=== PATIENT | female | born 1970 | race Caucasian/White ===

== ENCOUNTER 2016-10-28 06:39 | Emergency (ER) | payer OTHER ==
[~2016-10-28] VITALS: Ht 157.5 cm; Wt 77.1 kg
[~2016-10-28 06:39] MED LIST: Z.0.NO CURRENT MEDS
[2016-10-28 06:46] VITALS: BP 150/85; PULSE 87; RESP 16; TEMP 98; O2SAT 99
[2016-10-28] MEDS ORDERED: DIPH25CA PO (06:59)
[2016-10-28] MEDS ORDERED: PRED-503 PO (06:59)
[2016-10-28] MEDS ORDERED: ZANT150T2 PO (06:59)
--- NOTE | 2016-10-28 06:59 | PD ---
HPI Chief Complaint: sore throat Time Seen by Provider: 06:48 Travel History International Travel<30 days: No Contact w/Intl Traveler<30days: No Traveled to known affect area: No History of Present Illness HPI The patient is a 46-year-old female who presents to the emergency department for pain in the posterior aspect of her throat. The patient has a history of allergic reactions with swelling in the posterior aspect of her throat, states the last time she ate an unusual food was on Saturday. The patient complains of swelling of the uvula with mild pain with swallowing. She denies any shortness of breath. She denies any fever, chills, sweats, nasal congestion, or recent strep exposure. The patient denies taking any Kristian inhibitors or current medications. She denies any rash or pruritus. Symptoms are mild, no known alleviating or exacerbating factors. 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 ) Cardiovascular Problems: No Chemotherapy: Yes (FOR MOLAR ) Diminished Hearing: No Endocrine: No Genitourinary: No Musculoskeletal: No Neurologic: No Psychiatric: No Reproductive: Yes (MOLAR WITH CHEMO, LEFT TUBAL ) Respiratory: Yes (SINUS PROBLEMS) Immunizations Current: No Radiation Therapy: No : 4 Para: 1 Miscarriage: 3 Ectopic : Yes Past Surgical History Abdominal Surgery: Yes Cardiac Surgery: No Ear Surgery: No Endocrine Surgery: No Eye Surgery: No Genitourinary Surgery: No Gynecologic Surgery: Yes Oral Surgery: No Thoracic Surgery: No Social History Alcohol Use: Yes (SOCIAL) Tobacco Use: No Substance Use: No Allergies-Medications (Allergen,Severity, Reaction): Coded Allergies: Amoxicillin (Verified Allergy, Severe, SWOLLEN THROAT, 10/20/11) Bactrim (Verified Allergy, Severe, LIPS AND THROAT SWELL, 10/20/11) Codeine (Verified Allergy, Severe, SWOLLEN THROAT, 10/20/11) Erythromycin (Verified Allergy, Severe, UNKNOWN, 10/20/11) Percocet (Verified Allergy, Severe, SWOLLEN THROAT, 10/20/11) Tylenol (Verified Allergy, Severe, SWELL, 10/20/11) Reported Meds & Prescriptions Reported Meds & Active Scripts Active Reported No Current Meds (Miscellaneous Medication) Misc Review of Systems General / Constitutional: No: Fever, Chills HENT: Positive: Sore Throat, Other (as noted in the history of present illness) , No: Congestion Cardiovascular: No: Chest Pain or Discomfort Respiratory: No: Shortness of Breath, Wheezing Gastrointestinal: No: Nausea, Vomiting Skin: No Rash, No Itching Physical Exam Narrative GENERAL: Awake, alert, very pleasant 46-year-old female who appears her stated age and is in no acute respiratory distress. SKIN: Focused skin assessment warm/dry. HEAD: Atraumatic. Normocephalic. EYES: Pupils equal and round. No scleral icterus. No injection or drainage. ENT: No nasal bleeding or discharge. Oropharynx reveals the uvula that is edematous, no erythema or exudate. NECK: Trachea midline. No JVD. No audible stridor. CARDIOVASCULAR: Regular rate and rhythm. No murmur appreciated. RESPIRATORY: No accessory muscle use. Clear to auscultation. Breath sounds equal bilaterally. No wheezes. MUSCULOSKELETAL: No obvious deformities. No clubbing. No cyanosis. No edema. NEUROLOGICAL: Awake and alert. No obvious cranial nerve deficits. Motor grossly within normal limits. Normal speech. PSYCHIATRIC: Appropriate mood and affect; insight and judgment normal. Data Data Last Documented VS Vital Signs Date Time Temp Pulse Resp B/P Pulse Ox O2 Delivery O2 Flow Rate FiO2 10/28/16 06:46 98.0 87 16 150/[address] [facility] Medical Decision Making Medical Screen Exam Complete: Yes Emergency Medical Condition: Yes Medical Record Reviewed: Yes Differential Diagnosis Differential diagnosis includes uvulitis, Quincke's disease, allergic reaction, pharyngitis, angioedema, anaphylaxis. Narrative Course The patient's physical examination is consistent with uvulitis, unsure if this is inflammatory or allergic mediated. No evidence of erythema or exudates to suggest viral/bacterial pharyngitis. The patient does have a history of similar symptoms in the past secondary to foodborne allergies. The patient was administered prednisone, Benadryl, and Zantac. She is advised to follow-up with her primary physician and return if symptoms worsen or progress. Diagnosis Primary Impression: Uvulitis Additional Instructions: Medications as directed. Follow up with her primary physician. Return if symptoms worsen or progress. Med/Other Pt SpecificInfo: Prescription(s) given Scripts Ranitidine (Zantac)150 Mg Tkt472 Mg PO BID 5 Days Ref 0 Prov:Idris Gabriel MD 10/28/16 Diphenhydramine 25 Mg Cap25 Mg PO Q4H PRN (ALLERGIES) #20 CAP Ref 0 Prov:Idris Gabriel MD 10/28/16 Prednisone (Deltasone)20 Mg Tab40 Mg PO DAILY 4 Days Ref 0 Prov:Idris Gabriel MD 10/28/16 Disposition: 01 DISCHARGE HOME Condition: Stable Idris Gabriel MD Oct 28, 2016 06:59
[2016-10-28] MEDS ORDERED: diphenhydrAMINE HCL 25 MG CAP PO ONE (07:00)
[2016-10-28] MEDS ORDERED: FAMOTIDINE 20 MG TAB PO ONE (07:00)
[2016-10-28] MEDS ORDERED: predniSONE 20 MG TAB PO ONE (07:00)
== END 2016-10-28 07:22 | disposition home or self-care (01) ==
LOC: PHED 06:39
DX: K12.2 Cellulitis and abscess of mouth (principal)
CPT/HCPCS: 99283; J7512

== ENCOUNTER 2017-04-24 21:18 | Emergency (ER) | payer OTHER ==
[~2017-04-24 21:18] MED LIST changes: +DIPH25CA PO; +PRED-503 PO; -Z.0.NO CURRENT MEDS; +ZANT150T2 PO
[2017-04-24 21:26] VITALS: BP 169/80; PULSE 94; RESP 20; TEMP 98.2; O2SAT 98
--- NOTE | 2017-04-24 22:38 | PD ---
HPI Chief Complaint: Musculoskeletal Complaint Time Seen by Provider: 22:35 Travel History International Travel<30 days: No Contact w/Intl Traveler<30days: No Traveled to known affect area: No History of Present Illness HPI The patient is a 46-year-old female that complains of right knee pain for about a week. She states she noted swelling in the knee and is painful to walk on it. She denies any trauma. She denies any fever. She denies any other joint swelling. She denies any skin rash. She states the pain is dull and a 9/10. Flexion of the knee causes pain. 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 ) Cardiovascular Problems: No Chemotherapy: Yes (FOR MOLAR (REMITION)) Diminished Hearing: No Endocrine: No Genitourinary: No Musculoskeletal: No Neurologic: No Psychiatric: No Reproductive: Yes (MOLAR WITH CHEMO, LEFT TUBAL ) Respiratory: Yes (SINUS PROBLEMS) Immunizations Current: No Radiation Therapy: No Tetanus Vaccination: Unknown Influenza Vaccination: No ?: Unknown LMP: 12 10 17 : 4 Para: 1 Miscarriage: 3 Ectopic : Yes Tubal Ligation: Yes Past Surgical History Abdominal Surgery: Yes Cardiac Surgery: No Ear Surgery: No Endocrine Surgery: No Eye Surgery: No Genitourinary Surgery: No Gynecologic Surgery: Yes Oral Surgery: No Thoracic Surgery: No Other Surgery: Yes (ADNOIDS) Social History Alcohol Use: Yes (SOCIAL) Tobacco Use: No Substance Use: No Allergies-Medications (Allergen,Severity, Reaction): Coded Allergies: acetaminophen (Verified Allergy, Severe, SWELL, 04/24/17) amoxicillin (Verified Allergy, Severe, SWOLLEN THROAT, 04/24/17) codeine (Verified Allergy, Severe, SWOLLEN THROAT, 04/24/17) erythromycin base (Verified Allergy, Severe, UNKNOWN, 04/24/17) oxycodone (Verified Allergy, Severe, SWOLLEN THROAT, 04/24/17) sulfamethoxazole (Verified Allergy, Severe, LIPS AND THROAT SWELL, 04/24/17 ) trimethoprim (Verified Allergy, Severe, LIPS AND THROAT SWELL, 04/24/17) Reported Meds & Prescriptions Reported Meds & Active Scripts Active No Active Prescriptions or Reported Medications Review of Systems Except as stated in HPI: all other systems reviewed are Neg Physical Exam Narrative GENERAL: Well-nourished, slightly obese patient in slight apparent distress with her right knee discomfort. Her vital signs show blood pressure 169/80 but are otherwise normal. SKIN: Focused skin assessment warm/dry. No erythema is present and no skin rash is present. HEAD: Normocephalic. EYES: No scleral icterus. No injection or drainage. NECK: Supple, trachea midline. No JVD or lymphadenopathy. CARDIOVASCULAR: Regular rate and rhythm without murmurs, gallops, or rubs. RESPIRATORY: Breath sounds equal bilaterally. No accessory muscle use. GASTROINTESTINAL: Abdomen soft, non-tender, nondistended. MUSCULOSKELETAL: No cyanosis, or edema. The right knee shows diffuse swelling without erythema. Collaterals, drawer, Malvin all intact on testing. BACK: Nontender without obvious deformity. No CVA tenderness. Data Data Last Documented VS Vital Signs Date Time Temp Pulse Resp B/P (MAP) Pulse Ox O2 Delivery O2 Flow Rate FiO2 04/24/17 21:26 98.2 94 20 169/80 (109) 98 Orders Orders Knee, Complete (4vws) (04/24/17 ) Ketorolac Inj (Toradol Inj) (04/24/17 22:45) [facility] Medical Decision Making Medical Screen Exam Complete: Yes Emergency Medical Condition: Yes Medical Record Reviewed: Yes Interpretation(s) X-rays show degenerative change but no fracture. Differential Diagnosis Osteoarthritis, fracture knee, joint effusion, septic joint-extremely unlikely Narrative Course The patient has osteoarthritis. She should lose weight and should take Motrin 600 mg 3 times daily. She should follow-up with a primary care physician. Diagnosis Primary Impression: Effusion of knee joint right Additional Impression: Osteoarthritis of right knee Additional Instructions: As we discussed, stay off the knee as rescue candy. We will write you a 5 day work excuse. The ibuprofen is one tablet 3 times daily taken regularly to establish high anti-inflammatory levels. Follow-up with a primary care physician as soon as possible. Med/Other Pt SpecificInfo: Prescription(s) given Scripts Ibuprofen (Ibuprofen) 600 Mg Tab 600 MG PO TID for Arthritis Pain, #44 TAB 0 Refills Prov: Neil Mosqueda MD 04/24/17 Disposition: 01 DISCHARGE HOME Condition: Stable Neil Mosqueda MD Apr 24, 2017 22:38
[2017-04-24] MEDS ORDERED: KETOROLAC TROMETHAMINE 60 MG/2 ML (IM) VIAL IM ONE (22:45)
--- NOTE | 2017-04-24 22:57 | RADRPT ---
EXAM DATE/TIME: 04/24/2017 22:19 [facility] COMPARISON: No previous studies available for comparison. INDICATIONS : Right knee pain from unknown injury. MEDICAL HISTORY : None. SURGICAL HISTORY : None. ENCOUNTER: Initial ACUITY: 1 week PAIN SCORE: 4/10 LOCATION: Right lateral knee. FINDINGS: There is a moderate-sized suprapatellar knee joint effusion. There is mild degenerative changes withi n the patellofemoral and femorotibial joints. There is no acute fracture or dislocation. CONCLUSION: 1. Moderate-sized suprapatellar knee joint effusion. 2. Mild degenerative changes involving the patellofemoral and femorotibial joints. 3. No acute fracture or dislocation. Onofre Pena MD on April 24, 2017 at 22:54 Board Certified Radiologist. This report was verified electronically.
[2017-04-24] MEDS ORDERED: IBUP-232 PO (23:14)
[2017-04-24 23:26] VITALS: RESP 18
[2017-04-24 23:40] VITALS: BP 163/82
== END 2017-04-24 23:40 | disposition home or self-care (01) ==
LOC: PHEFT 21:18
DX: M17.11 Unilateral primary osteoarthritis, right knee (principal)
CPT/HCPCS: 73564; 96372; 99283; J1885

== ENCOUNTER 2017-05-25 13:33 | Emergency (ER) | payer OTHER ==
[~2017-05-25] VITALS: Ht 157.5 cm; Wt 75.1 kg
[~2017-05-25 13:33] MED LIST changes: -DIPH25CA PO; +IBUP-232 PO; -PRED-503 PO; -ZANT150T2 PO
[2017-05-25 13:38] VITALS: BP 190/89; PULSE 99; RESP 16; TEMP 98.7; O2SAT 100
[2017-05-25] MEDS ORDERED: PRED20 PO (13:49)
[2017-05-25] MEDS ORDERED: MAGICADU2 SWISH-SWAL (13:49)
[2017-05-25] MEDS ORDERED: AZIT250T3 PO (13:49)
--- NOTE | 2017-05-25 13:55 | PD ---
HPI Chief Complaint: ENT Complaint Time Seen by Provider: 13:42 Travel History International Travel<30 days: No Contact w/Intl Traveler<30days: No Traveled to known affect area: No History of Present Illness HPI 46-year-old female that presents to the ED for evaluation of sore throat. Patient has had sore throat for about 2 days now. Hurts to swallow. Some body aches. Congestion noted. No ear pain. 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 No other medical issues at this time. Per patient the discomfort 6 out of 10 and with swallowing. No urinary or bowel movement issues. Multiple allergies to different medications. Has not seen anybody for this. 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 ) Cardiovascular Problems: No Chemotherapy: Yes (FOR MOLAR (REMITION)) Diminished Hearing: No Endocrine: No Genitourinary: No Musculoskeletal: No Neurologic: No Psychiatric: No Reproductive: Yes (MOLAR WITH CHEMO, LEFT TUBAL ) Respiratory: Yes (SINUS PROBLEMS) Immunizations Current: No Radiation Therapy: No LMP: 05/25/2017 : 4 Para: 1 Miscarriage: 3 Ectopic : Yes Tubal Ligation: Yes Past Surgical History Abdominal Surgery: Yes Cardiac Surgery: No Ear Surgery: No Endocrine Surgery: No Eye Surgery: No Genitourinary Surgery: No Gynecologic Surgery: Yes Oral Surgery: No Thoracic Surgery: No Other Surgery: Yes (ADNOIDS) Social History Alcohol Use: Yes (SOCIAL) Tobacco Use: No Substance Use: No Allergies-Medications (Allergen,Severity, Reaction): Coded Allergies: acetaminophen (Verified Allergy, Severe, SWELL, 05/25/17) amoxicillin (Verified Allergy, Severe, SWOLLEN THROAT, 05/25/17) codeine (Verified Allergy, Severe, SWOLLEN THROAT, 05/25/17) erythromycin base (Verified Allergy, Severe, UNKNOWN, 05/25/17) oxycodone (Verified Allergy, Severe, SWOLLEN THROAT, 05/25/17) sulfamethoxazole (Verified Allergy, Severe, LIPS AND THROAT SWELL, 05/25/17) trimethoprim (Verified Allergy, Severe, LIPS AND THROAT SWELL, 05/25/17) Reported Meds & Prescriptions Reported Meds & Active Scripts Active Azithromycin 250 Mg Tab 250 Mg PO DIRECTED Take 2 tabs (500 mg) on day 1 then 1 tab daily x 4 days. Prednisone 20 Mg Tab 20 Mg PO BID 5 Days Magic Mouthwash Adult Liq (Multi-Ingredient Mouthwash/Gargle) 120 Ml Susp 5 Ml SWISH-SWAL ACHS Each 5mL contains: Nystatin 200,000units, Diphenhydramine 4.25mg, Viscous Lidocaine 10mg, Walton syrup 0.8 mL Ibuprofen 600 Mg Tab 600 Mg PO TID Review of Systems Except as stated in HPI: all other systems reviewed are Neg Physical Exam Narrative GENERAL: Well-nourished, well-developed patient in no apparent distress. SKIN: Warm and dry. HEAD: Atraumatic. Normocephalic. EYES: Pupils equal and round reactive to light and accommodation. No scleral icterus. No injection or drainage. ENT: No nasal bleeding or discharge. Mucous membranes pink and moist. TMs are clear with no sign of infection or perforation. No mastoid tenderness. Ear canals are intact bilaterally. No lymphadenopathy. Nostril mucosa is red and moist with clear mucus noted. No sinus tenderness to palpation noted. Tonsils are enlarged and swollen with exudates bilaterally. No ulvua Deviation. Tongue is midline. NECK: Trachea midline. No JVD. No meningeal signs noted CARDIOVASCULAR: Regular rate and rhythm. RESPIRATORY: No accessory muscle use. Clear to auscultation. Breath sounds equal bilaterally. GASTROINTESTINAL: Abdomen soft, non-tender, nondistended. Hepatic and splenic margins not palpable. MUSCULOSKELETAL: Extremities without clubbing, cyanosis, or edema. No obvious deformities. NEUROLOGICAL: Awake and alert. No obvious cranial nerve deficits. Motor grossly within normal limits. Five out of 5 muscle strength in the arms and legs. Normal speech. PSYCHIATRIC: Appropriate mood and affect; insight and judgment normal. Data Data Last Documented VS Vital Signs Date Time Temp Pulse Resp B/P (MAP) Pulse Ox O2 Delivery O2 Flow Rate FiO2 05/25/17 13:38 98.7 99 16 190/89 (122) 100 Orders Orders Ed Discharge Order (05/25/17 13:51) MDM Medical Decision Making Medical Screen Exam Complete: Yes Emergency Medical Condition: Yes Medical Record Reviewed: Yes Differential Diagnosis Tonsillitis versus strep throat versus pharyngitis Narrative Course 38-year-old female that presents to the ED for evaluation of sore throat. Patient was properly examined and was found to have signs and symptoms consistent appears to be tonsillitis. Very likely strep throat. We'll treat with azithromycin which patient states she can take when no issues. She has taken it before with no issues. She will also be given a perception for prednisone and Magic mouthwash. She was told that if anything worsens she is to come back. Cold fluids were endorsed. OTC medicines as needed. See ED worsening symptoms. Follow with PCP. Diagnosis Primary Impression: Acute tonsillitis Qualified Codes: J03.90 - Acute tonsillitis, unspecified Patient Instructions: General Instructions Additional Instructions: Motrin for pain and fever. Drink plenty of fluids. Follow-up with PCP. See ED for worsening symptoms. Med/Other Pt SpecificInfo: Prescription(s) given Scripts Azithromycin (Azithromycin) 250 Mg Tab 250 MG PO DIRECTED for Infection, #6 TAB 0 Refills Take 2 tabs (500 mg) on day 1 then 1 tab daily x 4 days. Prov: Priya Dobbins MD 05/25/17 Prednisone (Prednisone) 20 Mg Tab 20 MG PO BID for 5 Days, #10 TAB 0 Refills Prov: Priya Dobbins MD 05/25/17 [id number]-Zflkygcvxwkjjit-Kaurxmavb Liq (Magic Mouthwash Adult Liq) 120 Ml Susp 5 ML SWISH-SWAL ACHS for Mouth sores, #120 ML 0 Refills Each 5mL contains: Nystatin 200,000units, Diphenhydramine 4.25mg, Viscous Lidocaine 10mg, Walton syrup 0.8 mL Prov: Priya Dobbins MD 05/25/17 Disposition: 01 DISCHARGE HOME Condition: Stable Yobany Victor May 25, 2017 13:55
[2017-05-25] MEDS ORDERED: ALLE60TA PO (14:01)
== END 2017-05-25 14:09 | disposition home or self-care (01) ==
LOC: PHEFT 13:33
DX: J03.90 Acute tonsillitis, unspecified (principal)
CPT/HCPCS: 99283

== ENCOUNTER 2018-02-24 21:57 | Inpatient (IN) ==
--- NOTE | 2018-02-24 23:26 | ED ---
HPI General Chief Complaint: Chest Pain Stated Complaint: Chest Pain Time Seen by Provider: 02/24/18 23:19 Source: patient Mode of arrival: ambulatory Limitations: no limitations History of Present Illness HPI narrative: The patient is a 47-year-old female who presents to the emergency department for chest pain. 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 The chest pain was substernal, nonradiating, described as heaviness and pressure, and lasted approximately 2-3 hours and then resolved. The patient had a return of her chest pain and was seen in a wellness center clinic for [facility] across the street where she had an abnormal EKG and was advised to come to the emergency department for further workup to rule out OK. The patient states she is currently chest pain-free, did receive aspirin at the wellness center. The patient denies any known history of hypertension, hyperlipidemia, or diabetes. The patient does not have a primary physician. She denies any tobacco use. She does note a family history of coronary artery disease with her grandfather. The patient denied any shortness of breath, nausea, vomiting, or diaphoresis with her symptoms. The patient denies any history of pulmonary embolism, DVT, recent travel, recent hospitalizations, or recent surgery. MD complaint: Reports chest pain STEMI Alert: No Onset (ago): hour(s) Duration: improved and now resolved Onset: other Pain location: Reports substernal Severity: moderate Severity scale (1-10): 6 Quality: Reports heaviness Pain radiation: Reports none Relieving factors: nothing Exacerbating factors: nothing Context: Reports other Treatments prior to arrival chest pain: Reports aspirin Related Data On Oral Contraceptives: No Home Medications Medication Instructions Recorded Confirmed cetirizine [Zyrtec] 10 mg PO DAILY PRN 12/14/17 02/24/18 Allergies Allergy/AdvReac Type Severity Reaction Status Date / Time acetaminophen Allergy Severe SWELL Verified 02/24/18 22:12 amoxicillin Allergy Severe SWOLLEN Verified 02/24/18 22:12 THROAT codeine Allergy Severe SWOLLEN Verified 02/24/18 22:12 THROAT erythromycin base Allergy Severe Anaphylaxis Verified 02/24/18 22:12 oxycodone Allergy Severe SWOLLEN Verified 02/24/18 22:12 THROAT sulfamethoxazole Allergy Severe LIPS AND Verified 02/24/18 22:12 THROAT SWELL trimethoprim Allergy Severe LIPS AND Verified 02/24/18 22:12 THROAT SWELL Review of Systems ROS: all other systems reviewed are negative [facility] Medical History Medical History Metal bone fixation hardware in place (Acute) Tubal (Acute) Uterine cancer (Acute) Molar (Acute) Surgical History Surgical History History of surgery on upper extremity (Acute) Social History Social History Substance History: No History of Abuse Second Hand Smoke Exposure: No Smoking Status: Never smoker How Often Do You Have a Drink Containing Alcohol: Monthly or less Recent Travel in [facility] within the Last 8 Weeks: No Recent Out of Country Travel within the Last 8 Weeks: No Exam Narrative Exam Narrative: GENERAL: Awake, alert, very pleasant 47-year-old female who appears her stated age and is in no acute respiratory distress. SKIN: Focused skin assessment warm/dry. HEAD: Atraumatic. Normocephalic. EYES: Pupils equal and round. No scleral icterus. No injection or drainage. ENT: No nasal bleeding or discharge. Mucous membranes pink and moist. NECK: Trachea midline. No JVD. CARDIOVASCULAR: Regular rate and rhythm. No murmur appreciated. RESPIRATORY: No accessory muscle use. Clear to auscultation. Breath sounds equal bilaterally. GASTROINTESTINAL: Abdomen soft, non-tender, nondistended. No epigastric tenderness. MUSCULOSKELETAL: No obvious deformities. No clubbing. No cyanosis. No edema. Calves are soft bilaterally. NEUROLOGICAL: Awake and alert. No obvious cranial nerve deficits. Motor grossly within normal limits. Normal speech. PSYCHIATRIC: Appropriate mood and affect; insight and judgment normal. Course Initial Documented Vital Signs Temperature 97.9 F 02/24/18 22:13 Pulse Rate 101 H 02/24/18 22:13 Respiratory Rate 16 02/24/18 22:13 Blood Pressure 157/90 H 02/24/18 22:13 Pulse Oximetry 100 02/24/18 22:13 Last Documented Vital Signs Temperature 97.9 F 02/24/18 22:13 Pulse Rate 84 02/24/18 23:44 Respiratory Rate 16 02/24/18 23:44 Blood Pressure 154/89 H 02/24/18 23:44 Pulse Oximetry 99 02/24/18 23:44 Clinical Decision Support PERC Rule Age greater than or equal to 50: No HR greather than or equal to 100: No Sa02 on room air is less than 95%: No Unilateral Leg Swelling: No Hemoptysis: No Recent Surgery or Trauma: No Prior PE or DVT: No Hormone Use: No Medical Decision Making MDM Narrative Medical decision making narrative: IV was established, labs are drawn and sent, and the patient was placed on cardiac telemetry monitoring and continuous pulse oximetry monitoring. EKG was ordered and interpreted. EKG reveals normal sinus rhythm with moderate intraventricular conduction delay with QRS of [address] changes. The [facility] prior to transfer to the emergency department. Chest x-ray was obtained. Chest x-ray was unremarkable, no acute cardiopulmonary disease. The patient's troponin was elevated at 0.60. The patient was chest pain-free, was placed on a heparin drip and we will apply 1/2 inch Nitropaste. The patient has [facility], therefore, the on-call [facility] physician was paged for admission. The patient may benefit from evaluation by cardiology for further workup including possible stress test and/or cardiac catheterization with echocardiogram. The patient once again was chest pain-free at 12:35 AM. Medical Screen Exam Complete: Yes Emergency Medical Condition: Yes Differential Diagnosis Differential Diagnosis: Differential diagnosis includes ACS, STEMI, cardiomyopathy, pulmonary embolism, GERD, esophageal spasm, pancreatitis, stress , pleural effusion, pneumonia, myocarditis, pericarditis. Lab Data Lab results reviewed: Yes I reviewed the patient's lab results. Result diagrams: 02/24/18 23:30 02/24/18 23:30 Lab Results 02/24/18 02/24/18 02/24/18 Range/Units 23:30 23:30 23:30 WBC 9.2 (4.0-11.0) th/mm3 RBC 4.33 (4.00-5.30) mil/mm3 Hgb 10.7 L (11.6-15.3) gm/dL Hct 33.8 L (35.0-46.0) % MCV 78.1 L (80.0-100.0) fL MCH 24.6 L (27.0-34.0) pg MCHC 31.5 L (32.0-36.0) % RDW 15.3 (11.6-17.2) % Plt Count 316 (150-450) th/mm3 MPV 9.3 (7.0-11.0) fL Neut % (Auto) 60.4 (16.0-70.0) % Lymph % (Auto) 28.9 (9.0-44.0) % [place] % (Auto) 8.0 (0.0-8.0) % Eos % (Auto) 2.3 (0.0-4.0) % Baso % (Auto) 0.4 (0.0-2.0) % Neut # (Auto) 5.6 (1.8-7.7) th/mm3 Lymph # (Auto) 2.7 (1.0-4.8) th/mm3 [place] # (Auto) 0.7 (0.0-0.9) th/mm3 Eos # (Auto) 0.2 (0.0-0.4) th/mm3 Baso # (Auto) 0.0 (0.0-0.2) th/mm3 WBC Differential . Differential Comment Auto diff final PT 11.4 (9.8-11.6) sec INR 1.1 Ratio APTT 30.3 (23.4-31.7) sec Sodium 142 (136-145) meq/L Potassium 3.6 (3.5-5.1) meq/L Chloride 109 H (98-107) meq/L Carbon Dioxide 27.2 (21.0-32.0) meq/L Anion Gap 6 (5-15) meq/L BUN 8 (7-18) mg/dL Creatinine 0.81 (0.50-1.00) mg/dL Estimated GFR 75 L (>89) mL/min Random Glucose 119 H (74-106) mg/dL Calcium 7.6 L (8.5-10.1) mg/dL Magnesium 1.9 (1.5-2.5) mg/dL Total Bilirubin 0.2 (0.2-1.0) mg/dL AST 23 (15-37) U/L ALT 13 (10-53) U/L Alkaline Phosphatase 137 H (45-117) U/L Total Creatine Kinase 126 (26-192) U/L Troponin I 0.60 H (0.02-0.05) ng/mL Total Protein 7.5 (6.4-8.2) g/dL Albumin 3.3 L (3.4-5.0) g/dL Lipase 132 (73-393) U/L Imaging Data Attestation: I personally reviewed and interpreted this imaging study as follows : My impression: No acute cardiopulmonary disease Radiologist's impression: Chest X-Ray 02/24/18 23:19 CONCLUSION: Negative examination. ECG Data EKG Prior to Arrival: Yes Attestation: I personally reviewed and interpreted this ECG as follows: Interpretation: EKG reveals normal sinus rhythm with a rate of 92. Moderate intraventricular conduction delay with QRS of [address] and T wave changes. Discharge Plan Discharge Disposition Patient Disposition: ED Admit(ED Internal Use Only) Discharge Condition Condition: Stable Discharge Details Diagnosis: Non-ST elevation OK (NSTEMI) Physicians Team ED Provider: Idris Gabriel Primary Care Provider: Primary Care Larissa Hernández Rxs /Orders / Referrals /Forms Prescriptions: No Action cetirizine [Zyrtec] 10 mg Tablet 10 mg PO DAILY PRN (Reason: Allergy Symptoms) RF: 0 Discharge Instructions Patient Printed Instructions: Chest Pain (ED) Status ED Status: With Doctor
[2018-02-24 23:50] LABS: Baso % (Auto) 0.4 % (0.0-2.0); Eos # (Auto) 0.2 th/mm3 (0.0-0.4); Eos % (Auto) 2.3 % (0.0-4.0); Hematocrit 33.8 % (35.0-46.0); Hemoglobin 10.7 gm/dL (11.6-15.3); Lymph # (Auto) 2.7 th/mm3 (1.0-4.8); Lymph % (Auto) 28.9 % (9.0-44.0); Mean Corpuscular HGB Conc 31.5 % (32.0-36.0); Mean Corpuscular Hemoglobin 24.6 pg (27.0-34.0); Mean Corpuscular Volume 78.1 fL (80.0-100.0); Mean Platelet Volume 9.3 fL (7.0-11.0); Mono # (Auto) 0.7 th/mm3 (0.0-0.9); Neut # (Auto) 5.6 th/mm3 (1.8-7.7); Neut % (Auto) 60.4 % (16.0-70.0); Platelet Count 316 th/mm3 (150-450); Red Blood Count 4.33 mil/mm3 (4.00-5.30); Red Cell Distribution Width 15.3 % (11.6-17.2); White Blood Count 9.2 th/mm3 (4.0-11.0)
--- NOTE | 2018-02-24 23:53 | XR ---
EXAM DATE: 02/24/2018 11:48 PM EST AGE/SEX: 47 years / Female INDICATIONS: Chest pain. CLINICAL DATA: This is the patient's initial encounter. Patient reports that signs and symptoms have been present for 1 day and indicates a pain score of 5/10. MEDICAL/SURGICAL HISTORY: None. None. COMPARISON: No prior exams available for comparison. FINDINGS: A single AP view of the chest demonstrates the lungs to be symmetrically aerated without evidence of mass, infiltrate or effusion. The cardiomediastinal contours are unremarkable. Osseous structures a re intact. CONCLUSION: Negative examination. Electronically signed by: Kole Calderon MD 02/24/2018 11:51 PM EST
[2018-02-25 00:08] LABS: Activated Partial Thrombo Time 30.3 sec (23.4-31.7); INR 1.1 Ratio; Prothrombin Time 11.4 sec (9.8-11.6)
[2018-02-25 00:10] LABS: Anion Gap 6 meq/L (5-15)
[2018-02-25 00:15] LABS: Alanine Aminotransferase 13 U/L (10-53); Albumin 3.3 g/dL (3.4-5.0); Alkaline Phosphatase 137 U/L (45-117); Aspartate Aminotransferase 23 U/L (15-37); Blood Urea Nitrogen 8 mg/dL (7-18); Calcium 7.6 mg/dL (8.5-10.1); Carbon Dioxide 27.2 meq/L (21.0-32.0); Chloride 109 meq/L (98-107); Creatine Kinase 126 U/L (26-192); Glomerular Filtration Rate 75 mL/min (>89); Glucose,Random 119 mg/dL (74-106); Lipase 132 U/L (73-393); Magnesium 1.9 mg/dL (1.5-2.5); Sodium 142 meq/L (136-145); Total Protein 7.5 g/dL (6.4-8.2)
[2018-02-25 00:24] LABS: Potassium 3.6 meq/L (3.5-5.1)
[2018-02-25] MEDS ORDERED: Heparin 10,000 UNITS/10 ML Vial (for IV use) IV.PUSH STA (00:29)
[2018-02-25] MEDS ORDERED: Heparin Drip 25,000 UNIT/250 ML BAG IV.CONT PRN (00:29)
[2018-02-25 00:39] LABS: Creatine Kinase MB 4.9 ng/mL (0.5-3.6)
[2018-02-25] MEDS ORDERED: Acetaminophen 325 MG Tablet PO PRN ×2 (00:55→01:12)
--- NOTE | 2018-02-25 07:57 | P.CONCA ---
History of Present Illness Primary Care Provider: No Primary Care Physician History of Present Illness: 47-year-old female with no known past medical history (although she does not follow up with doctors) who presented with chest heaviness. 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 No further chest pain overnight. Has not noticed any prior episodes of exertional shortness of breath or chest pain. The patient has noticed some mid scapular back pain for the past week or so. Never smoker. Father with diabetes and stroke in his 60s, mother with high blood pressure. Initial EKG showed NSR with left bundle branch block, no prior EKG available for comparison. Troponin 0.6 x 2, third set pending. Started on Nitropaste and heparin GTT. Review of Systems All other systems reviewed negative except as stated in HPI PMFSH - History History Provided By: Patient - Medical History Medical History: Medical History (Last Updated 02/24/18 @ 22:14 by Sharifa Belcher RN) Metal bone fixation hardware in place (Acute) Tubal (Acute) Uterine cancer (Acute) Molar - Surgical History Surgical History: Surgical History (Last Updated 02/24/18 @ 22:14 by Sharifa Belcher RN) History of surgery on upper extremity - Tobacco History Second Hand Smoke Exposure: No Smoking Status: Never smoker - Alcohol History How Often Do You Have a Drink Containing Alcohol: Monthly or less - Substance Use History Substance History: No History of Abuse - Travel History Recent Travel in the [place] Within the Last 8 Weeks: No Recent Travel Out of the Country Within the Last 8 Weeks: No - Immunization History Tetanus Immunization: >5 Years Medications and Allergies Active Medications: Active Medications Acetaminophen (Tylenol) 650 mg PO Q4H PRN PRN Reason: Temp > 100.4 Ferrous Sulfate (Ferosul) 325 mg PO BID@1200,1700 ELIEL Heparin Sodium/Dextrose (Heparin/D5w 25,000 U/250 Ml) 25,000 unit in 250 mls @ 0 mls/hr IV.CONT TITRATE PRN; Protocol PRN Reason: Per Protocol Last Titration: 02/25/18 05:00 Dose: 600 units/hr, 6 mls/hr Metoprolol Tartrate (Lopressor) 25 mg PO BID ELIEL Nitroglycerin (Nitro-Bid 2% Oint) 1 inch TOPICAL Q8HR [facility] Last Admin: 02/25/18 06:30 Dose: 1 inch Ondansetron HCl (Zofran Inj) 4 mg IV.PUSH Q6H PRN PRN Reason: NAUSEA OR VOMITING Senna/Docusate Sodium (Sandy-Colace) 1 tab PO BID [facility] Sodium Chloride (Ns Flush) 2 ml IV.FLUSH BID [facility] Sodium Chloride (Ns Flush) 2 ml IV.FLUSH PRN PRN PRN Reason: FLUSH AFTER USING IV ACCESS Allergies Allergy/AdvReac Type Severity Reaction Status Date / Time amoxicillin Allergy Severe SWOLLEN Verified 02/24/18 22:12 THROAT codeine Allergy Severe SWOLLEN Verified 02/24/18 22:12 THROAT erythromycin base Allergy Severe Anaphylaxis Verified 02/24/18 22:12 oxycodone Allergy Severe SWOLLEN Verified 02/24/18 22:12 THROAT sulfamethoxazole Allergy Severe LIPS AND Verified 02/24/18 22:12 THROAT SWELL trimethoprim Allergy Severe LIPS AND Verified 02/24/18 22:12 THROAT SWELL Home Medications Medication Instructions Recorded Confirmed Type cetirizine [Zyrtec] 10 mg PO DAILY PRN 12/14/17 02/24/18 History Exam Vital signs: Vital Signs 02/24/18 22:13 02/24/18 23:27 02/24/18 23:44 Temperature 97.9 F Pulse Rate 101 H 84 Respiratory Rate 16 16 Blood Pressure 157/90 H 154/89 H Pulse Oximetry 100 100 99 02/25/18 02:32 02/25/18 02:33 02/25/18 02:34 Temperature 97.8 F Pulse Rate 95 H 95 H 95 H Respiratory Rate 18 Blood Pressure 131/75 Pulse Oximetry 99 02/25/18 03:03 02/25/18 04:00 02/25/18 05:00 Temperature 98 F Pulse Rate 93 H 92 H 89 Respiratory Rate 18 Blood Pressure 118/78 Pulse Oximetry 99 02/25/18 06:00 02/25/18 07:00 Temperature Pulse Rate 93 H 89 Respiratory Rate Blood Pressure Pulse Oximetry Intake & Output 02/24/18 02/25/18 02/25/18 18:59 06:59 18:59 Intake Total 0 / 0 Balance 0 / 0 Weight 164 lb 3.91 oz Intake: Oral 0 / 0 Other: # Voids 2 Narrative: GENERAL: Well-developed well-nourished. In no acute distress. NECK: No carotid bruits. No JVD. CARDIOVASCULAR: Regular rate and rhythm. No murmur appreciated. RESPIRATORY: No accessory muscle use. Clear to auscultation. Breath sounds equal bilaterally. MUSCULOSKELETAL: No clubbing or cyanosis. No edema. NEUROLOGICAL: Awake and alert. Normal speech. Results 02/24/18 23:30 02/24/18 23:30 Cardiac Enzymes 02/24/18 02/25/18 Range/Units 23:30 03:17 AST 23 (15-37) U/L CK-MB (CK-2) 4.9 H (0.5-3.6) ng/mL Troponin I 0.60 H 0.55 H (0.02-0.05) ng/mL Coagulation 02/24/18 02/25/18 02/25/18 Range/Units 23:30 03:17 04:51 PT 11.4 (9.8-11.6) sec APTT 30.3 102.1 H* D 45.1 H D (23.4-31.7) sec CBC 02/24/18 Range/Units 23:30 WBC 9.2 (4.0-11.0) th/mm3 RBC 4.33 (4.00-5.30) mil/mm3 Hgb 10.7 L (11.6-15.3) gm/dL Hct 33.8 L (35.0-46.0) % Plt Count 316 (150-450) th/mm3 Neut # (Auto) 5.6 (1.8-7.7) th/mm3 Lymph # (Auto) 2.7 (1.0-4.8) th/mm3 [place] # (Auto) 0.7 (0.0-0.9) th/mm3 Eos # (Auto) 0.2 (0.0-0.4) th/mm3 Baso # (Auto) 0.0 (0.0-0.2) th/mm3 Comprehensive Metabolic Panel 02/24/18 Range/Units 23:30 Sodium 142 (136-145) meq/L Potassium 3.6 (3.5-5.1) meq/L Chloride 109 H (98-107) meq/L Carbon Dioxide 27.2 (21.0-32.0) meq/L BUN 8 (7-18) mg/dL Creatinine 0.81 (0.50-1.00) mg/dL Calcium 7.6 L (8.5-10.1) mg/dL AST 23 (15-37) U/L ALT 13 (10-53) U/L Alkaline Phosphatase 137 H (45-117) U/L Total Protein 7.5 (6.4-8.2) g/dL Albumin 3.3 L (3.4-5.0) g/dL Intake and Output 02/24/18 02/25/18 02/25/18 22:59 06:59 14:59 Intake Total 0 / 0 Balance 0 / 0 Intake: Oral 0 / 0 Other: # Voids 2 Weight 160 lb 164 lb 3.91 oz - Imaging and Cardiology Imaging: Impressions Chest X-Ray 02/24/18 23:19 CONCLUSION: Negative examination. Assessment and Plan - Plan 47-year-old female with no significant past medical history who presented for chest pain NSTEMI: N.p.o. for [facility] today. If left heart cath normal, would consider aorta CTA for dissection evaluation tomorrow. Continue heparin GTT and Nitropaste for now. Start aspirin and metoprolol 25 mg twice daily. Check lipid profile. Anemia: Mild, microcytic. Start ferrous sulfate. Discussed Condition With: Patient, Dr. Pardo, Dr. Montgomery
[2018-02-25] MEDS: Acetaminophen 325 MG Tablet PO PRN ×2 (08:12→19:46)
[2018-02-25] MEDS: Metoprolol Tartrate 25 MG Tablet PO SCH (08:12)
[2018-02-25 08:52] LABS: Chol/HDL Ratio 5.06 Ratio
--- NOTE | 2018-02-25 09:28 | ECG ---
Date Performed: 02/24/2018 Time Performed: 22:22:45 PTAGE: 47 years EKG: Sinus rhythm MODERATE INTRAVENTRICULAR CONDUCTION DELAY Nonspecific ST and T wave abnormalities ABNORMAL ECG NO PREVIOUS TRACING DOCTOR: Yo Ziegler Interpretating Date/Time 02/25/2018 09:27:52
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
[2018-02-25] MEDS ORDERED: Heparin/NS PF Inj 1,000 ML ONE (11:25)
[2018-02-25] MEDS ORDERED: fentaNYL Citrate Inj 100 MCG/2 ML Ampul ONE (11:30)
[2018-02-25] MEDS ORDERED: Heparin 10,000 UNITS/10 ML Vial (for IV use) ONE (11:30)
[2018-02-25] MEDS ORDERED: Lidocaine 1% Inj 50 ML Vial INFILTRATN PRN (11:52)
[2018-02-25] MEDS ORDERED: Atropine Inj 1 MG/ML Vial IV.PUSH PRN (11:52)
[2018-02-25] MEDS ORDERED: Bacitracin Oint 0.9 GM Packet TOPICAL ONE (11:52)
--- NOTE | 2018-02-25 11:56 | P.PCN ---
Date of procedure: 02/25/18 Pre-op diagnosis: Unstable angina Procedure: test and research reactor operator: Rosalio Montgomery MD Procedures performed: 1. Fluoroscopy with interpretation 2. Coronary angiography Methods: Risks, benefits, and alternatives were discussed with the patient. Patient understood and consented to the procedure. Patient was brought into the cardiac catheterization lab and placed on the catheterization table. The patient's right wrist was prepped and draped in a sterile fashion. The right wrist was anesthetized with 1% lidocaine. Right wrist was cannulated and a 6 Surinamese 11 cm sheath was placed without difficulty. 200 mcg of intra-arterial nitroglycerin was administered and 5000 units of intravenous heparin. Coronary angiography: The left main coronary artery was selectively engaged with a 5 Surinamese JL 3.5 Wu catheter. The right coronary circulation was selectively engaged with a 5 Surinamese JR 5 Wu catheter. 1. Left main coronary artery has minor luminal irregularities 2. Left anterior descending coronary artery gives rise to diagonal branch and has minor luminal irregularities 3. Left circumflex coronary artery gives rise to an obtuse marginal branch with minor luminal irregularities 4. Right coronary is a dominant vessel giving rise to the posterior descending branch. The right coronary artery has minor luminal irregularities Conclusions: 1. Mild nonobstructive coronary disease Plan: We will continue with guideline directed medical therapy. Sheath was removed and Hemoband applied. We will monitor the patient for any postprocedural complications and hopeful for discharge later today.
--- NOTE | 2018-02-25 12:10 | CATHPROC ---
[place] HIS Report Study Information Study Number Admission Scheduled Start Study Start [id number] Feb 25 2018 12:55AM 02/25/2018 Feb 25 2018 11:25AM [facility] Service Cardiac Pacer/ICD Facility Department [facility] Physician and Clinical Staff Initial Tj Wills Captain Assistant Robby Ingram,RN Other Robby Ramirez,RN Recorder Ministerio Sierra,RT(R) Scrub Ayde Strickland,CLIENT TECHNICAL PROFESSIONAL TECH2 Procedures Performed Procedure Location (Site) Vessel Name Coronary Angiograms LCA Left Coronary Coronary Angiograms RCA Right Coronary L Heart Cath Wire insertion Radial (right) Radial Art. Equipment Time Supervisor [place] Description Size Mfg Part Number Used/Scraped TRANSDUCER, TRUWAVE [id number] 11:36 CARDONA ACEVEDO * Used W/STOCKCOCK *[id number] *[id number] 11:36 [employer] BLANKET,WARM AIR CCL * Used *[id number] 11:36 [employer] PACK, CCL CUSTOM * Used *[id number] 11:36 [employer] SUPPORT, ARTERIAL ADULT [id number] *[id number] Used 11:29 MEDTRONIC JR 5.0 DXTERITY CATHETER FR 5 [id number] Used BAND, RADIAL COMPRESSION TR [id number] 11:54 [employer]azzow 24CM Used SHORT 24 *[id number] SHEATH, FR6 RADIAL PRELUDE 11:36 [employer]ow FR 6 [id number] Used EASE 11CM [id number] 11:36 [employer] WIRE, EXCHANGE 260CM 3MMJ 260CM Used *[id number] 11:36 NAMIC MANIFOLD, 4 PORT * Used *[id number] 11:36 NYCOMED OMNIPAQUE, 350 MG, 150ML 150ML [id number] Used Equipment Model, Serial, Lot Number and Expiration Data Description Model Number Serial Number Lot Number Expiration Date JR 5.0 DXTERITY CATHETER [id number] 10-09-2020 History: Allergies Allergy Reaction Amoxicillin Codeine Erythromycin Oxycodone Sulfa History: Risk Factors Family History of Hypertension Dyslipidemia Previous KS Previous Heart Failure Premature CAD Yes No Yes No No Prior Valve Prior PCI Prior CABG Surgery No No No Cerebrovascular Peripheral Artery Chronic Lung On Dialysis Diabetes Disease Disease Disease No No No No No History: Risk Factors Selection Items No Previous Cardiovascular Treatment History: Symptoms/Diagnosis Selection Items Angina-unstable History: Stress Tests Stress or Imaging Studies Performed No History: Other Current Smoker No Labs Hgb (g/dl) Hct (%) WBC (l/cumm) Platelets (thousands) 11.60-17.00 35.00-51.00 4.00-11.00 150.00-450.00 10.7 33.8 9.2 316 Glucose (mg/dl) BUN (mg/dl) Creatinine (mg/dl) BUN:Creatinine (1:x) 74.00-106.00 7.00-18.00 0.50-1.30 10.00-20.00 119 8 0.8 10 Na (meq/l) K (meq/l) 136.00-145.00 3.50-5.10 142 3.6 INR (PTT:PT) 0.90-1.10 1.1 Troponin I (ng/ml) CPK-MB (ng/ML) 0.02-0.05 0.50-3.60 0.46 4.9 Medication Medication Total Dose (Bolus/Oral) Medication Total Dosage/Unit 1% XYLOCAINE 20 mL FENTANYL 50 mcg HEPARIN 3000 units RADIAL COCKTAIL 200 mL (Bolus) VERSED 2 mg ZOFRAN 4 mg Medications (Bolus/Oral) Medication Time Given Dosage/Unit Administered By Reason VERSED 02/25/2018 11:40:40 AM 2 mg Robby Ingram 2 mg VERSED given in lab by Robby Ingram RN in Left Wrist via Peripheral IV. Ordered by Marck Montgomery. FENTANYL 02/25/2018 11:41:10 AM 50 mcg Robby Ingram 50 mcg FENTANYL given in lab by Robby Ingram RN in Left Wrist via Peripheral IV. Ordered by Tj Montgomery. 1% XYLOCAINE 02/25/2018 11:42:06 AM 20 mL Tj Montgomery 20 mL 1% XYLOCAINE given in lab by Tj Montgomery in Right Wrist via Subcutaneous. Ordered by Tj Montgomery. ZOFRAN 02/25/2018 11:42:33 AM 4 mg Tj Montgomery 4 mg ZOFRAN given in lab by Tj Montgomery in Left Wrist via Peripheral IV. Ordered by Tj Montgomery . HEPARIN 02/25/2018 11:43:27 AM 3000 units Robby Ingram 3000 units HEPARIN given in lab by Robby Ingram RN in Right Antecubital via Peripheral IV. Ordered by Tj Montgomery. RADIAL COCKTAIL 02/25/2018 11:44:16 AM 200 mL (Bolus) Tj Montgomery 200 mL (Bolus) RADIAL COCKTAIL given in lab by Tj Montgomery in Right Radial via Radial. Using [Solu tion Name]. Ordered by Tj Montgomery. nitroglycerin Medication (Drip) Medication Time Given Dosage/Unit Concentration/Unit Diluent (ml) Solution IV Solutions 02/25/2018 11:30:20 AM 0 mL (IV) 500 NaCl .9 IV Solutions given in lab by Robby Ingram RN in Left Wrist via Peripheral IV. Pump/Drip Flow = 20 m l/hr using NaCl .9. Ordered by jT Montgomery. Initial Case Assessment Cardiovascular HR Rhythm NIBP Chest Pain 81 sr 121/79 0 Edema Present Skin color Skin None Normal Warm Dry Circulatory - Right Pulses Dorsalis Pedis Femoral 2 2 Scale (0,1,2,3,4,d) Circulatory - Left Pulses Dorsalis Pedis Femoral 2 2 Scale (0,1,2,3,4,d) Circulatory - Lower Extremities Color Lower Right Color Lower Left Normal Normal Neurological State Oriented to time-place- Alert Moves all extremities person Respiration - General Respiration Rate SpO2 (%) (B/min) 10 97 Final Case Assessment Cardiovascular HR Rhythm NIBP Chest Pain 82 sr 112/72 0 Edema Present Skin color Skin None Normal Warm Dry Circulatory - Right Pulses Dorsalis Pedis Femoral 2 2 Scale (0,1,2,3,4,d) Circulatory - Left Pulses Dorsalis Pedis Femoral 2 2 Scale (0,1,2,3,4,d) Circulatory - Lower Extremities Color Lower Right Color Lower Left Normal Normal Neurological State Oriented to time-place- Alert Moves all extremities person Respiration - General Respiration Rate SpO2 (%) (B/min) 18 94 Chronological Log Time Study Chronological Log 11:14:56 Patient arrived via Bed. 11:25:01 Patient Name, D.O.B, / Armband Verified By R.N. 11:25:02 Consent signed by the physician and the patient and verified by the [facility] staff. 11:25:03 Pre-op and post- op instructions given; patient acknowledges understanding of instructions. Vitals capture started with the following parameters, Patient=Adult, Interval=5 min, Initial Pr dchiml=124 mmHg, 11:25:36 Deflation Rate=5 mmHg, Cuff placed on Left Arm 11:25:56 Verbal Stimulation=2 Physical Stimulation=2 Airway=2 Respiration=2 TOTAL=8. (0=absent, 1=li mited, 2=present) 11:26:09 Presedation assessment performed by [facility] RN. 11:26:14 HR=80 bpm, SJES=278/79 mmhg, Resp=18 B/min, Aisha=10 11:26:27 Patient has been NPO for More than 6Hrs. 11:26:29 Skin Breakdown/NONE PER PATIENT 11:27:35 Allens test performed on the right radial and ulnar artery. 11:27:38 Patient Warmer Placed on the Table. 11:27:42 Rita Prominences Protected 11:27:46 History and physical on the chart or being dictated. Assessment: Initial Case, HR=81 BPM, Rhythm=sr, WXGA=239/79 mmhg, Chest Pain=0, Edema=None, Col or=Normal, Skin = Warm, Dry Right Pulses: Antonino Ped=2, Femoral=2 Left Pulses: Antonino Ped=2, Femoral=2 11:27:48 Lower Right Extremities: Color=Normal Lower Left Extremities: Color=Normal Neurological: State=Alert, Ox3, MARLEY Respiration: Resp=10 B/min, SpO2=97 % 11:28:30 Reference ECG taken 11:28:57 Bilateral groins prepped with 2% chlorhexidine, and draped after a 3 min. waiting time. 11:29:16 A # 22 IV was noted in the Wrist (left). Grade = 0 11:29:55 A # 20 IV was noted in the Antecubital (right). Grade = 0 IV Solutions given in lab by Robby Ingram, RN in Left Wrist via Peripheral IV. Pump/Drip Flow = 20 ml/hr using NaCl .9. 11:30:20 Ordered by Tj Montgomery. 11:31:13 HR=96 bpm, ESSG=321/79 mmhg, SpO2=99.0 %, Resp=19 B/min, Aisha=10 11:33:58 Pressure channel 1 zeroed. 11:34:49 MD notified ready 11:35:16 MD responded 11:36:14 HR=80 bpm, FOML=452/76 mmhg, SpO2=99.0 %, Resp=14 B/min, Aisha=10 11:38:47 MD arrived. Time Out. Correct patient, correct procedure, correct physician, labs, allergies, and equipment verified with label tacker 11:38:53 team present. Fire risk assesment completed (see hard stop sheet for coding). Time Out Conc urred by MD and individual staff in procedure. 11:39:40 Case Start 11:40:40 2 mg VERSED given in lab by Robby Ingram RN in Left Wrist via Peripheral IV. Ordered by Tj Hollis. 11:41:10 50 mcg FENTANYL given in lab by Robby Ingram RN in Left Wrist via Peripheral IV. Ordered by Tj Montgomery. 11:41:15 HR=83 bpm, RBJW=016/73 mmhg, SpO2=98.0 %, Resp=14 B/min, Aisha=10 11:42:06 20 mL 1% XYLOCAINE given in lab by Tj Montgomery in Right Wrist via Subcutaneous. Ordered by Tj Montgomery. 11:42:16 Access site was Right Radial Artery . 11:42:33 4 mg ZOFRAN given in lab by Tj Montgomery in Left Wrist via Peripheral IV. Ordered by Tj Caraballo. 11:42:57 A SHEATH, FR6 RADIAL PRELUDE EASE 11CM FR 6 was advanced into the Radial (right) using the Wu technique. 11:43:27 3000 units HEPARIN given in lab by Robby Ingram RN in Right Antecubital via Peripheral IV . Ordered by Tj Montgomery. 200 mL (Bolus) RADIAL COCKTAIL given in lab by Tj Montgomery in Right Radial via Radial. Using [Solution Name]. 11:44:16 Ordered by Tj Montgomery. nitroglycerin A JR 5.0 DXTERITY CATHETER FR 5 was advanced over a wire. OMNIPAQUE, 350 MG, 150ML 150ML was us ed for 11:44:23 injections. Recorded Pressure: Ao, HR=81, Condition=Condition 1 11:44:49 (Aorta) Ao 114/74/91 11:44:59 The RCA was injected and visualized at various angles. OMNIPAQUE, 350 MG, 150ML 150ML used . After removing the current catheter a JL 3.5 INFINITI CATHETER FR 5 was advanced over a WIRE, E XCHANGE 260CM 11:45:51 3MMJ 260CM. 11:46:16 HR=81 bpm, AZZI=511/65 mmhg, SpO2=92.0 %, Resp=16 B/min, Aisha=9 11:46:32 Wire removed 11:46:39 The LCA was injected and visualized at various angles. OMNIPAQUE, 350 MG, 150ML 150ML used . 11:48:06 A WIRE, EXCHANGE 260CM 3MMJ 260CM was inserted via Radial (right). 11:48:18 Catheter and wire was removed 11:49:57 Case End (Physician broke scrub) 11:51:15 HR=83 bpm, EQMV=470/72 mmhg, SpO2=92.0 %, Resp=17 B/min, Aisha=10 11:51:59 Vitals capture stopped. Assessment: Final Case, HR=82 BPM, Rhythm=sr, BRBW=823/72 mmhg, Chest Pain=0, Edema=None, Golden r=Normal, Skin = Warm, Dry Right Pulses: Antonino Ped=2, Femoral=2 Left Pulses: Antonino Ped=2, Femoral=2 11:52:02 Lower Right Extremities: Color=Normal Lower Left Extremities: Color=Normal Neurological: State=Alert, Ox3, MARLEY Respiration: Resp=18 B/min, SpO2=94 % Radial Compression Device Used. 12 mLs of air placed in BAND, RADIAL COMPRESSION TR SHORT 24 2 4CM. Affected 11:53:33 hand 94 % O2 saturation. 11:54:18 No case complications noted. 11:54:36 Bedside Report will be given.(talked to Rosy) 11:55:13 A Left Heart Cath was performed. 12:00:[facility] Study - Contrast Media Used In Study Contrast Total Opened (mL) Total Used (mL) Total Wasted (mL) Omnipaque 350 35 35 0 End Study - Maximum Contrast Load Max Contrast Load (mL) 465.6 End Study - Radiation Exposure Fluoro Time (minutes) 1.5 End Study - Patient Disposition Complications Transferred To No Regular Bed
[2018-02-25] MEDS: Senna/Docusate Sodium 8.6/50 MG Tablet PO SCH (12:31)
[2018-02-25] MEDS ORDERED: Sodium Chlor 0.9% Inj 500 ML IV.CONT SCH (12:34)
[2018-02-25] MEDS: Sod Chloride 0.9% Inj 1,000 ML IV.CONT SCH (12:46)
[2018-02-25] MEDS: Ferrous Sulfate 325 MG Tablet PO SCH ×2 (12:54→18:01)
[2018-02-25] MEDS ORDERED: Iohexol 350 MG/ML 50 ML Vial (for Cath Lab) IVCONTRAST ONE (13:53)
--- NOTE | 2018-02-25 15:21 | CT ---
EXAM DATE: 02/25/2018 3:09 PM EST AGE/SEX: 47 years / Female INDICATIONS: Back pain CLINICAL DATA: This is the patient's initial encounter. Patient reports that signs and symptoms have been present for 1 day and indicates a pain score of 3/10. MEDICAL/SURGICAL HISTORY: Carcinoma, uterine. Hypertension. Molar Appendectomy. RADIATION DOSE: 16.51 CTDI (mGy) COMPARISON: . TECHNIQUE: Volumetric scanning was performed using a multi-row detector CT scanner during bolus infu toyin of 85 ml Omnipaque 350 (iohexol) nonionic water-soluble contrast as a single exam dose. The da ta was post processed with a variety of visualization algorithms including full volume maximum intens ity projection, multi-planar sliding thin slab reformation, curved planar reformation, and surface re ndering techniques. Using automated exposure control and adjustment of the mA and/or kV according to patient size, radiation dose was kept as low as reasonably achievable to obtain optimal diagnostic q uality images. DICOM format image data is available electronically for review and comparison. FINDINGS: Lungs: There is no consolidation or pneumothorax. No concerning pulmonary nodule is visualized. No pleural fluid is present. Mediastinum: No abnormally enlarged lymph nodes by CT criteria. No axillary or hilar abnormalities a re identified. Abdomen: The liver and spleen are free of focal defects. The gallbladder and pancreas demonstrate no abnormality. The adrenal glands are normal. The kidneys demonstrate no evidence of solid renal mass or hydronephrosis. No free fluid or abdominal masses are identified. No para-aortic adenopathy is see n. Pelvis: The uterus appears lobulated likely secondary to leiomyomatous change. There is a 3.9 cm low -density mass of the left adnexa likely related to a left ovarian cystic mass. Thoracic Aorta: The thoracic aortic root is normal with normal branching of the great vessels. Ther e is no evidence of aneurysm or dissection. Abdominal Aorta: The aorta is normal in caliber without aneurysm or dissection. The renal arteries are patent bilaterally. The proximal celiac and superior mesenteric arteries are patent and normal i n diameter. Pelvic Vessels: The internal iliac and external iliac vessels are patent without aneurysm or stenosi s. CONCLUSION: 1. The aorta appears normal. 2. 3.9 cm suspected left cystic ovarian/adnexal mass. 3. Lobulated appearance of the uterus likely related to leiomyomatous change. Electronically signed by: Tony Diaz MD 02/25/2018 3:20 PM EST
[2018-02-26 05:11] LABS: Hematocrit 30.1 % (35.0-46.0); Hemoglobin 9.8 gm/dL (11.6-15.3); Mean Corpuscular HGB Conc 32.5 % (32.0-36.0); Mean Platelet Volume 9.8 fL (7.0-11.0); Platelet Count 273 th/mm3 (150-450); Red Blood Count 3.91 mil/mm3 (4.00-5.30); Red Cell Distribution Width 15.2 % (11.6-17.2); White Blood Count 6.7 th/mm3 (4.0-11.0)
[2018-02-26 05:27] LABS: Calcium 7.8 mg/dL (8.5-10.1)
[2018-02-26] MEDS: Sod Chloride 0.9% Inj 1,000 ML IV.CONT SCH (05:31)
[2018-02-26] MEDS: Senna/Docusate Sodium 8.6/50 MG Tablet PO SCH ×2 (05:34→08:05)
[2018-02-26] MEDS: Metoprolol Tartrate 25 MG Tablet PO SCH ×2 (08:06)
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
[2018-02-26] MEDS: Ferrous Sulfate 325 MG Tablet PO SCH (11:44)
== END 2018-02-26 15:15 | disposition home or self-care (01) ==
LOC: NEPE 21:57 → NEDA 02-25 00:55 → HCPC 02-25 02:18
PROVIDERS: ADMIT Hospitalist; ATTEND Hospitalist